=== PATIENT | male | born 1975 | race Caucasian/White ===

== ENCOUNTER → 2018-06-22 | Outpatient (CLI) | payer BC ==
--- NOTE | 2018-06-22 16:34 | XR ---
EXAMINATION TYPE: XR cervical spine limited DATE OF EXAM: 06/22/2018 COMPARISON: NONE HISTORY: Neck pain TECHNIQUE: 3 views FINDINGS: Vertebra have normal alignment. There is hypertrophic spurring at C6-7 with moderate anteri or osteophyte formation. Posterior elements are intact. There are no cervical ribs. Atlantoaxial face t joint is normal. IMPRESSION: C6-7 spondylosis. No fracture.
== END | disposition home or self-care (01) ==
LOC: RADXRMAIN 16:06
PROVIDERS: ATTEND Family Medicine
DX: M47.812 Spondylosis without myelopathy or radiculopathy, cervical region (principal)
CPT/HCPCS: 72040

== ENCOUNTER → 2018-08-03 | Outpatient (CLI) | payer BC ==
--- NOTE | 2018-08-03 10:14 | XR ---
EXAMINATION TYPE: XR chest 2V DATE OF EXAM: 08/03/2018 COMPARISON: NONE HISTORY: Chest pain TECHNIQUE: Frontal and lateral views of the chest are obtained. FINDINGS: There is no focal air space opacity. No evidence for pneumothorax. No pleural effusion. The cardiac silhouette size is within normal limits. The osseous structures are grossly intact. IMPRESSION: 1. No acute cardiopulmonary process.
== END | disposition home or self-care (01) ==
LOC: RADXRMAIN 09:27
PROVIDERS: ATTEND Family Medicine
DX: R07.9 Chest pain, unspecified (principal)
CPT/HCPCS: 71046

== ENCOUNTER → 2021-04-26 | Outpatient (CLI) | payer BC ==
--- NOTE | 2021-04-26 12:00 | ECHOF ---
Referral Reason:R94.31 Abnormal EKG MEASUREMENTS -------- HEIGHT: 182.9 cm WEIGHT: 86.2 kg BP: IVSd: 1.1 cm (0.6 - 1.1) LVIDd: 4.4 cm (3.9 - 5.3) LVPWd: 1.0 cm (0.6 - 1.1) EDV(Teich): 87 ml IVSs: 1.4 cm LVIDs: 3.4 cm LVPWs: 1.4 cm %IVS Thck: 21 % ESV(Teich): 47 ml EF(Teich): 46 % %FS: 23 % SV(Teich): 40 ml RVIDd: 3.1 cm (< 3.3) LALs A4C: 5.2 cm LAAs A4C: 22.0 cm LAESV A-L A4C: 78 ml LAESV MOD A4C: 76 ml LALs A2C: 5.3 cm LAAs A2C: 22.0 cm LAESV A-L A2C: 78 ml LAESV MOD A2C: 74 ml LAESV(A-L): 78 ml LAESV Index (A-L): 37.52 ml/m Ao Diam: 2.8 cm (2.0 - 3.7) LA Diam: 4.3 cm (2.7 - 3.8) AV Cusp: 2.0 cm (1.5 - 2.6) EPSS: 0.1 cm MV E Tristen: 0.44 m/s MV DecT: 187 ms MV Dec [place]: 2.4 m/s MV A Tristen: 0.57 m/s MV E/A Ratio: 0.78 MV PHT: 54 ms TR Vmax: 2.82 m/s TR maxP.89 mmHg RAP: 5.00 mmHg RVSP: 36.89 mmHg MV EF SLOPE: 144.95 mm/s (70 - 150) MV EXCURSION: 34.36 mm (> 18.000) FINDINGS -------- Sinus rhythm. This was a technically good study. LV size, wall thickness and systolic function are normal, with an EF greater than 55%. The left shravan tricular size is normal. The right ventricle is mild to moderately enlarged. LA is moderately dilated 34-39 ml/m2 The right atrial size is normal. The aortic valve is trileaflet, and appears structurally normal. No aortic stenosis or regurgitation. The mitral valve leaflets are mild to moderately thickened. Moderate mitral regurgitation is prese nt. Moderate prolapse of the anterior mitral valve leaflet. Moderate prolapse of the posterior mi tral valve leaflet. Mild tricuspid regurgitation present. There is mild pulmonary hypertension. There is no pulmonic regurgitation present. There is no pericardial effusion. CONCLUSIONS -------- 1. LV size, wall thickness and systolic function are normal, with an EF greater than 55%. 2. The left ventricular size is normal. 3. The right ventricle is mild to moderately enlarged. 4. LA is moderately dilated 34-39 ml/m2 5. The right atrial size is normal. 6. The aortic valve is trileaflet, and appears structurally normal. No aortic stenosis or regurgitati on. 7. The mitral valve leaflets are mild to moderately thickened. 8. Moderate mitral regurgitation is present. 9. Moderate prolapse of the anterior mitral valve leaflet. 10. Moderate prolapse of the posterior mitral valve leaflet. 11. Mild tricuspid regurgitation present. 12. There is mild pulmonary hypertension. 13. There is no pericardial effusion. PATIENT RELATIONS SPECIALIST: Chantale Wooten RDCS
--- NOTE | 2021-04-26 12:03 | NM ---
EXAMINATION TYPE: NM stress cardiolite complete DATE OF EXAM: 04/26/2021 COMPARISON: NONE HISTORY: 45-year-old male with abnormal EKG TECHNIQUE: After the intravenous administration of 9.8 mCi Tc 99m Sestamibi - Rest images obtained 5 5 minutes post injection. The patient exercised using a [place] protocol and 1 minute prior to peak e xercise was injected with 25 mCi Tc 99m Sestamibi - Stress images obtained 15 minutes post injection. FINDINGS: Targeted heart rate (148 BPM) was achieved (183 BPM) during performance of the study. Total exercise time 10 minutes 5 seconds. Review of stress and rest SPECT images demonstrates small area of reversibility along the lateral api pedro wall. However, this is not corroborated on polar maps. Rest images show some attenuation artifact along the mid lateral wall as the area does not persist on stress images. Gated analysis shows belen l wall motion with an estimated left ventricular ejection fraction of 63 %. TID is calculated at 0.8 0, within normal limits. IMPRESSION: Unable to exclude a small area of reversibility along the lateral apical wall. Further evaluation as clinically indicated.
--- NOTE | 2021-04-26 13:31 | P.STRESS ---
- Stress Test Note Stress Test Results/Findings: Exam Performed: NM stress cardiolite complete Exam Date: 04/26/21 Reason for Exam: ABNORMAL ECG Height: 5 ft 10 in Weight: 86.183 kg Protocol: CARDIOLITE STRESS Stage: 4 Duration of Exercise: 10:05 Resting Heart Rate: 81 Resting Blood Pressure: 140/85 Maximum Achieved Heart Rate: 185 Maximum Achieved Blood Pressure: 190/79 85% PMHR: 148 100% PMHR: 174 METS: 12.1 Technologist Comment: Stress Test Results/Findings: Baseline heart rate 81 beats a minute, Baseline blood pressure 140/85 mmHg Baseline 12-lead EKG showed sinus rhythm normal [place] narrow QRS poor R-wave progression normal ST segments Patient exercised on a Jarret protocol for 10 minutes, achieving a peak heart rate of 185 beats a minute. Normal blood pressure response to Occasional PVCs No ECG evidence for ischemia no ST segment abnormalities Impression good exercise capacity without any evidence for ischemia
--- NOTE | 2021-04-27 08:56 | EST ---
Stress Test Results/Findings: Exam Performed: NM stress cardiolite complete Exam Date: 04/26/21 Reason for Exam: ABNORMAL ECG Height: 5 ft 10 in Weight: 86.183 kg Protocol: CARDIOLITE STRESS Stage: 4 Duration of Exercise: 10:05 Resting Heart Rate: 81 Resting Blood Pressure: 140/85 Maximum Achieved Heart Rate: 185 Maximum Achieved Blood Pressure: 190/79 85% PMHR: 148 100% PMHR: 174 METS: 12.1 Technologist Comment: Stress Test Results/Findings: Baseline heart rate 81 beats a minute, Baseline blood pressure 140/85 mmHg Baseline 12-lead EKG showed sinus rhythm normal [place] narrow QRS poor R-wave progression normal ST segments Patient exercised on a Jarret protocol for 10 minutes, achieving a peak heart rate of 185 beats a minute. Normal blood pressure response to Occasional PVCs No ECG evidence for ischemia no ST segment abnormalities Impression good exercise capacity without any evidence for ischemia MTDD
== END | disposition home or self-care (01) ==
LOC: RADNMMAIN 07:49
PROVIDERS: ATTEND Family Medicine
DX: R94.31 Abnormal electrocardiogram [ECG] [EKG] (principal)
CPT/HCPCS: 93017; 93306; 78452; A9500

== ENCOUNTER → 2021-05-10 | Outpatient (CLI) | payer BC ==
[2021-05-10 13:50] LABS: HCT 45.6 % (39.0-53.0); HGB 14.9 gm/dL (13.0-17.5); MCH 29.2 pg (25.0-35.0); MCHC 32.7 g/dL (31.0-37.0); MCV 89.4 fL (80.0-100.0); Mean Platelet Volume 7.1; Platelet Count 281 k/uL (150-450); RDW 12.3 % (11.5-15.5); WBC 7.1 k/uL (3.8-10.6)
[2021-05-10 14:00] LABS: African American GFR (CKD) >90 (>60 ml/min/1.73 sqM); Anion Gap 6 mmol/L; Blood Urea Nitrogen 19 mg/dL (9-20); Carbon Dioxide 29 mmol/L (22-30); Chloride 102 mmol/L (98-107); Non-African American GFR(CKD) >90 (>60 ml/min/1.73 sqM); Potassium 4.9 mmol/L (3.5-5.1); Sodium 137 mmol/L (137-145)
== END | disposition home or self-care (01) ==
LOC: LABWHC1 12:12
PROVIDERS: ATTEND Internal Medicine Interventional Cardiology
DX: Z01.812 Encounter for preprocedural laboratory examination (principal); R07.9 Chest pain, unspecified
CPT/HCPCS: 36415; 80051; 82565; 84520; 85027

== ENCOUNTER 2021-05-15 11:01 | Day surgery (SDC) | payer BC ==
[2021-05-10 13:13] VITALS: BMI 27.2
[~2021-05-15 11:01] MED LIST: ALPRAZolam 0.25 MG TAB PO PRN; ALPRAZolam 0.5 MG TAB PO PRN; ASPIRIN 325 MG TAB PO STA; HEPARIN SODIUM,PORCINE 10,000 UNIT in SODIUM CHLORIDE 0.9% 1,000 ML IRRIGATION PRN; HEPARIN SODIUM,PORCINE 2,500 UNIT in SODIUM CHLORIDE 0.9% 250 ML IRRIGATION PRN; NITROGLYCERIN SL TABS 0.4 MG TAB SUBLINGUAL PRN; SODIUM CHLORIDE 0.9% 1,000 ML in EMPTY BAG 1 BAG IV SCH
[2021-05-15 11:31] VITALS: RESP 16; TEMP 97.8
[2021-05-15] MEDS ORDERED: SODIUM CHLORIDE 0.9% 1,000 ML IV ONE (11:34)
[2021-05-15] MEDS ORDERED: LIDOCAINE 1% INJ 10MG/ML (20 ML MDV) ONE (12:00)
[2021-05-15] MEDS ORDERED: HEPARIN SODIUM 1,000 UN/ML (10ML VL) ONE (12:00)
[2021-05-15] MEDS ORDERED: VERAPAMIL 2.5 MG/ML 2 ML AMP ONE (12:00)
[2021-05-15] MEDS ORDERED: MIDAZOLAM 2 MG/2 ML VIAL IV ONE (12:08)
[2021-05-15] MEDS ORDERED: LIDOCAINE 1% INJ 10MG/ML (20 ML MDV) SQ ONE (12:18)
[2021-05-15] MEDS ORDERED: VERAPAMIL SYRINGE (5 MG/10 ML) INTRAARTER ONE (12:19)
[2021-05-15] MEDS ORDERED: IOPAMIDOL-370 125ML BTL INJ ONE (12:27)
[2021-05-15] MEDS ORDERED: RX INFO: IV CONTRAST WAS GIVEN 1 EACH MISC MISCELLANE PRN (12:31)
[2021-05-15] MEDS ORDERED: SODIUM CHLORIDE 0.9% 1,000 ML IV SCH (12:45)
--- NOTE | 2021-05-15 13:47 | CC ---
CARDIAC CATHETERIZATION REPORT DATE OF SERVICE: 05/15/2021 PERFORMING PHYSICIAN: Kannan Story M.D. PROCEDURES PERFORMED: 1. Selective right and left coronary angiogram. 2. Left heart catheterization. INDICATION: This is a 46-year-old gentleman who was experiencing symptoms of chest pain and shortness of breath and underwent myocardial perfusion imaging stress test that came in to be abnormal. Because of that, a heart catheterization was advised. APPROACH: Right radial artery. COMPLICATIONS: None. LEVEL OF SEDATION: Moderate, with sedation length of 11 minutes. PROCEDURE DESCRIPTION: After obtaining informed consent, the patient was brought to the cardiac aquatic life laborer. The right radial artery was cannulated using micropuncture technique. The micropuncture wire passed easily. Then I placed a 6-[place] sheath at the right radial artery. I gave the patient 2 mg of verapamil IA and 5000 units of heparin IV was given. Selective right and left coronary angiogram was performed with JR4 and JL3.5 catheters. Left heart catheterization was performed using a 5-[place] pigtail catheter. The procedure was completed without any complication. SELECTIVE CORONARY ANGIOGRAM: 1. The RCA is a large-caliber vessel. It is a dominant vessel, appeared to be angiographically normal. It distally bifurcates into PDA and PLV branches. Both appeared to be angiographically normal. 2. The left main is angiographically normal, but a short left main. It bifurcates into LCX and LAD. 3. The LCX is a large-caliber vessel. It is a codominant vessel. The LCX is angiographically normal. It gives rise in the mid portion to a large OM branch which appeared to be angiographically normal. 4. The LAD is a large-caliber vessel. The LAD is angiographically normal. In the mid portion it gives rise to a large diagonal branch which seems to be angiographically normal. 5. HEMODYNAMICS: The LVEDP was about 12 mmHg without significant gradient across the aortic valve. CONCLUSION: 1. Normal coronary angiogram. 2. Normal left-sided filling pressures. POST-PROCEDURE MANAGEMENT: Medical treatment and follow up with the patient. GRIFFIN / LIORN: [id number] /
[2021-05-15 18:05] VITALS: BP 121/60; PULSE 75
== END 2021-05-15 17:36 | disposition home or self-care (01) ==
LOC: CATHCVL 11:01
PROVIDERS: ATTEND Internal Medicine Interventional Cardiology
DX: I20.0 Unstable angina (principal); R07.9 Chest pain, unspecified; R06.02 Shortness of breath; R94.39 Abnormal result of other cardiovascular function study; I10 Essential (primary) hypertension; Z20.822 Contact with and (suspected) exposure to COVID-19; I34.0 Nonrheumatic mitral (valve) insufficiency; Z79.82 Long term (current) use of aspirin; Z79.899 Other long term (current) drug therapy; Z88.0 Allergy status to penicillin
CPT/HCPCS: 93458; 87635; C1894; C1769; J2250; J2001; J1644; Q9967